=== PATIENT | male | born 1935 | race Caucasian/White ===

== ENCOUNTER → 2017-03-30 | Outpatient (CLI) | payer MEDICARE ==
[~2017-03-30] MED LIST: ASPI-555 PO; ATOR10TA PO; CARB1TAB20 PO; ESCI20TA PO; PANT40TA25 PO; TRAM50TA4 PO
== END | disposition home or self-care (01) ==
LOC: OIH 10:27
PROVIDERS: ATTEND Internal Medicine
DX: G20 Parkinson's disease (principal); G91.2 (Idiopathic) normal pressure hydrocephalus; G31.9 Degenerative disease of nervous system, unspecified
CPT/HCPCS: 70450

== ENCOUNTER 2017-07-13 13:50 | Inpatient (IN) | payer MEDICARE ==
[~2017-07-13 13:50] MED LIST changes: -ASPI-555 PO; -PANT40TA25 PO
[2017-07-13 14:39] LABS: BASOPHILS % (AUTO) 0.6 % (0.0-5.0); EOSINOPHILS % (AUTO) 2.4 % (0.0-8.0); HEMATOCRIT 33.1 % (42-54); LYMPHOCYTES % (AUTO) 13.3 % (21.0-51.0); MEAN CORPUSCULAR HEMOGLOBIN 26.2 pg (27.0-33.0); MEAN CORPUSCULAR HGB CONC 33.3 g/dL (32.0-36.0); MEAN CORPUSCULAR VOLUME 78.8 fL (79-99); MONOCYTES % (AUTO) 10.4 % (3.0-13.0); NEUTROPHILS % (AUTO) 73.3 % (40.0-77.0); PLATELET COUNT (AUTO) 261 K/uL (130-400); RED BLOOD CELL COUNT(AUTO) 4.21 MIL/uL (4.50-6.20); RED CELL DISTRIBUTION WIDTH 17.3 % (11.0-15.5); WHITE BLOOD COUNT (AUTO) 9.3 K/uL (4.8-10.8)
[2017-07-13 14:58] LABS: POTASSIUM 4.2 mmol/L (3.5-5.1)
[2017-07-13 15:03] LABS: BILIRUBIN,TOTAL 0.2 mg/dL (0.2-1.0)
[2017-07-13 15:06] LABS: CREATINE KINASE MB 0.9 ng/mL (0.5-3.6)
[2017-07-13] MEDS ORDERED: SODIUM CHLORIDE 0.9% 1000ML 1,000 ML IV ONE (15:17)
[2017-07-13] MEDS ORDERED: ONDANSETRON HCL MDV 20ML 2 MG/ML VIAL ONE (15:17)
[2017-07-13] MEDS ORDERED: METRONIDAZOLE 500MG/100ML BAG 100 ML ONE (15:18)
[2017-07-13] MEDS ORDERED: MORPHINE SULFATE 4 MG/1ML SYG ONE (15:18)
[2017-07-13] MEDS ORDERED: LEVOFLOXACIN 500 MG/D5W 100 ML 0 ML ONE (16:10)
[2017-07-13] MEDS ORDERED: CEFTRIAXONE SODIUM 1 GM ONE (18:05)
[2017-07-13] MEDS ORDERED: ENOXAPARIN SODIUM 80 MG/0.8 ML SQ SCH (19:00)
[2017-07-13 21:48] LABS: APPEARANCE,URINE Clear (CLEAR); BILIRUBIN,URINE Small (NEGATIVE); COLOR,URINE Dark Yellow (YELLOW); GLUCOSE, URINE (UA) Negative (NEGATIVE); KETONES,URINE Negative (NEGATIVE); LEUKOCYTE ESTERASE ,URINE Small (NEGATIVE); NITRATE,URINE Positive (NEGATIVE); OCCULT BLOOD,URINE Negative (NEGATIVE); PH,URINE 6.5 (5.0-8.0); PROTEIN,URINE Trace (NEGATIVE)
[2017-07-13 21:56] LABS: BACTERIA,URINE Few /HPF (None Seen); RBC,URINE 0-1 /HPF (0-1); SQUAMOUS EPITHELIAL CELL,UR Rare /HPF (0-2)
[2017-07-13 23:20] VITALS: BP 102/44
[2017-07-13 23:40] VITALS: BP 137/85
[2017-07-13] MEDS: METRONIDAZOLE 500MG/100ML BAG 100 ML IVPB SCH (23:58)
[2017-07-14] MEDS ORDERED: ASPI-555 PO (00:32)
[2017-07-14] MEDS ORDERED: PANT40TA25 PO (00:32)
[2017-07-14 04:10] VITALS: BP 108/56
[2017-07-14 05:18] LABS: HEMATOCRIT 30.8 % (42-54); MEAN CORPUSCULAR HEMOGLOBIN 25.8 pg (27.0-33.0); MEAN CORPUSCULAR HGB CONC 32.7 g/dL (32.0-36.0); MEAN CORPUSCULAR VOLUME 78.7 fL (79-99); PLATELET COUNT (AUTO) 237 K/uL (130-400); RED BLOOD CELL COUNT(AUTO) 3.91 MIL/uL (4.50-6.20); RED CELL DISTRIBUTION WIDTH 16.8 % (11.0-15.5)
[2017-07-14 05:34] LABS: POTASSIUM 4.1 mmol/L (3.5-5.1)
[2017-07-14] MEDS: METRONIDAZOLE 500MG/100ML BAG 100 ML IVPB SCH (06:56)
[2017-07-14 08:07] VITALS: BP 118/64
[2017-07-14] MEDS ORDERED: MORPHINE SULFATE 5 MG/ML VIAL IV PRN (08:15)
[2017-07-14] MEDS ORDERED: PNEUMOCOCCAL VACCINE POLYVALENT 0.5 ML/VIAL [PPV] IM SCH (08:15)
[2017-07-14] MEDS ORDERED: MORPHINE SULFATE 4 MG/1ML SYG IVP PRN (08:15)
[2017-07-14] MEDS: SODIUM CHLORIDE 0.9% 1000ML 1,000 ML IV SCH ×2 (11:02→21:35)
[2017-07-14] MEDS: PANTOPRAZOLE SODIUM 40 MG TABLET.DR PO SCH (11:03)
[2017-07-14] MEDS: ENOXAPARIN SODIUM 80 MG/0.8 ML SQ SCH (11:03)
[2017-07-14 12:00] VITALS: BP 100/59
[2017-07-14] MEDS ORDERED: CEFTRIAXONE 1GM/D5W 50ML 50 ML IV SCH (15:00)
[2017-07-14 16:42] VITALS: BP 123/62
[2017-07-14] MEDS: CEFTRIAXONE SODIUM 1 GM IVP SCH (16:47)
[2017-07-14] MEDS: LEVOFLOXACIN 500 MG/D5W 100 ML 100 ML IV SCH (16:48)
[2017-07-14] MEDS ORDERED: CEFTRIAXONE SODIUM 1 GM IVP SCH (18:00)
[2017-07-14] MEDS ORDERED: METRONIDAZOLE 500MG/100ML BAG 100 ML IVPB SCH (18:00)
[2017-07-14 19:45] VITALS: BP 127/70
[2017-07-15] VITALS (7 sets, daily range): BP systolic 110–154; BP diastolic 59–85
[2017-07-15 05:03] LABS: HEMATOCRIT 30.3 % (42-54); MEAN CORPUSCULAR HEMOGLOBIN 27.1 pg (27.0-33.0); MEAN CORPUSCULAR HGB CONC 34.7 g/dL (32.0-36.0); MEAN CORPUSCULAR VOLUME 78.2 fL (79-99); PLATELET COUNT (AUTO) 237 K/uL (130-400); RED BLOOD CELL COUNT(AUTO) 3.87 MIL/uL (4.50-6.20); RED CELL DISTRIBUTION WIDTH 16.8 % (11.0-15.5); WHITE BLOOD COUNT (AUTO) 5.4 K/uL (4.8-10.8)
[2017-07-15 05:11] LABS: CREATININE 0.9 mg/dL (0.5-1.5); POTASSIUM 3.8 mmol/L (3.5-5.1)
[2017-07-15] MEDS: PANTOPRAZOLE SODIUM 40 MG TABLET.DR PO SCH (09:00)
[2017-07-15] MEDS: ENOXAPARIN SODIUM 80 MG/0.8 ML SQ SCH (11:01)
[2017-07-15] MEDS: SODIUM CHLORIDE 0.9% 1000ML 1,000 ML IV SCH ×2 (11:02→19:51)
[2017-07-15] MEDS: CEFTRIAXONE SODIUM 1 GM IVP SCH (14:33)
[2017-07-15] MEDS: LEVOFLOXACIN 500 MG/D5W 100 ML 100 ML IV SCH (14:40)
[2017-07-16] MEDS: SODIUM CHLORIDE 0.9% 1000ML 1,000 ML IV SCH ×3 (01:00→15:15)
[2017-07-16 04:00] VITALS: BP 140/72
[2017-07-16 05:07] LABS: HEMATOCRIT 33.6 % (42-54); MEAN CORPUSCULAR HGB CONC 33.1 g/dL (32.0-36.0); MEAN CORPUSCULAR VOLUME 78.4 fL (79-99); PLATELET COUNT (AUTO) 239 K/uL (130-400); RED BLOOD CELL COUNT(AUTO) 4.29 MIL/uL (4.50-6.20); RED CELL DISTRIBUTION WIDTH 16.8 % (11.0-15.5); WHITE BLOOD COUNT (AUTO) 8.6 K/uL (4.8-10.8)
[2017-07-16 05:18] LABS: CREATININE 0.8 mg/dL (0.5-1.5); POTASSIUM 3.8 mmol/L (3.5-5.1)
[2017-07-16 07:57] VITALS: BP 132/71
[2017-07-16] MEDS: CARBIDOPA-LEVODOPA 25-100 TAB PO SCH ×3 (09:17→21:07)
[2017-07-16] MEDS: PANTOPRAZOLE SODIUM 40 MG TABLET.DR PO SCH (09:17)
[2017-07-16] MEDS: ENOXAPARIN SODIUM 80 MG/0.8 ML SQ SCH (09:18)
[2017-07-16 11:00] VITALS: BP 123/64
[2017-07-16] MEDS: METRONIDAZOLE 500MG/100ML BAG 100 ML IV SCH ×3 (15:14→23:52)
[2017-07-16 16:00] VITALS: BP 159/70
[2017-07-16] MEDS: LEVOFLOXACIN 500 MG/D5W 100 ML 100 ML IV SCH (17:17)
[2017-07-16 19:54] VITALS: BP 137/65
[2017-07-16] MEDS: ATORVASTATIN CALCIUM 10 MG TABLET PO SCH (21:07)
[2017-07-16 23:56] VITALS: BP 130/68
[2017-07-17 04:00] VITALS: BP 126/65
[2017-07-17] MEDS: SODIUM CHLORIDE 0.9% 1000ML 1,000 ML IV SCH ×3 (04:52→23:10)
[2017-07-17] MEDS: METRONIDAZOLE 500MG/100ML BAG 100 ML IV SCH ×4 (04:52→23:10)
[2017-07-17 07:44] VITALS: BP 115/61
[2017-07-17 08:58] LABS: HEMATOCRIT 31.2 % (42-54); MEAN CORPUSCULAR HEMOGLOBIN 26.4 pg (27.0-33.0); MEAN CORPUSCULAR HGB CONC 34.1 g/dL (32.0-36.0); MEAN CORPUSCULAR VOLUME 77.5 fL (79-99); PLATELET COUNT (AUTO) 232 K/uL (130-400); RED BLOOD CELL COUNT(AUTO) 4.02 MIL/uL (4.50-6.20); RED CELL DISTRIBUTION WIDTH 16.5 % (11.0-15.5); WHITE BLOOD COUNT (AUTO) 10.7 K/uL (4.8-10.8)
[2017-07-17 09:08] LABS: CREATININE 0.8 mg/dL (0.5-1.5); POTASSIUM 3.5 mmol/L (3.5-5.1)
[2017-07-17] MEDS: PANTOPRAZOLE SODIUM 40 MG TABLET.DR PO SCH (09:41)
[2017-07-17] MEDS: CARBIDOPA-LEVODOPA 25-100 TAB PO SCH ×3 (09:41→19:44)
[2017-07-17] MEDS: LACTULOSE 20 GM/30 ML UDCUP PO SCH ×3 (09:41→19:41)
[2017-07-17] MEDS: ENOXAPARIN SODIUM 80 MG/0.8 ML SQ SCH (09:42)
[2017-07-17 11:26] VITALS: BP 95/47
[2017-07-17 14:15] LABS: INR 1.11 (0.85-1.15); PROTHROMBIN TIME 11.6 SEC (9.6-11.6)
[2017-07-17] MEDS: LEVOFLOXACIN 500 MG/D5W 100 ML 100 ML IV SCH (15:56)
[2017-07-17 16:00] VITALS: BP 111/64
[2017-07-17] MEDS: ATORVASTATIN CALCIUM 10 MG TABLET PO SCH (19:41)
[2017-07-17 20:14] VITALS: BP 126/126
[2017-07-18] VITALS (7 sets, daily range): BP systolic 113–152; BP diastolic 50–75
[2017-07-18] MEDS: METRONIDAZOLE 500MG/100ML BAG 100 ML IV SCH ×4 (05:56→23:17)
[2017-07-18] MEDS: PANTOPRAZOLE SODIUM 40 MG TABLET.DR PO SCH (09:33)
[2017-07-18] MEDS: CEFTRIAXONE SODIUM 1 GM IV SCH (09:33)
[2017-07-18] MEDS: CARBIDOPA-LEVODOPA 25-100 TAB PO SCH ×3 (09:33→20:39)
[2017-07-18] MEDS: ENOXAPARIN SODIUM 80 MG/0.8 ML SQ SCH (09:34)
[2017-07-18] MEDS: LACTULOSE 20 GM/30 ML UDCUP PO SCH ×3 (09:34→20:38)
[2017-07-18] MEDS: SODIUM CHLORIDE 0.9% 1000ML 1,000 ML IV SCH ×3 (11:40→23:18)
[2017-07-18] MEDS: ATORVASTATIN CALCIUM 10 MG TABLET PO SCH (20:39)
[2017-07-19 00:48] VITALS: BP 128/68
[2017-07-19 04:52] VITALS: BP 126/55
[2017-07-19] MEDS: METRONIDAZOLE 500MG/100ML BAG 100 ML IV SCH ×4 (05:23→22:50)
[2017-07-19 07:46] VITALS: BP 124/58
[2017-07-19] MEDS: PANTOPRAZOLE SODIUM 40 MG TABLET.DR PO SCH (08:29)
[2017-07-19] MEDS: CARBIDOPA-LEVODOPA 25-100 TAB PO SCH ×3 (08:29→19:36)
[2017-07-19] MEDS: LACTULOSE 20 GM/30 ML UDCUP PO SCH (08:29)
[2017-07-19] MEDS: ENOXAPARIN SODIUM 80 MG/0.8 ML SQ SCH (08:29)
[2017-07-19] MEDS: CEFTRIAXONE SODIUM 1 GM IV SCH (08:30)
[2017-07-19 11:35] VITALS: BP 137/60
[2017-07-19 16:54] VITALS: BP 130/62
[2017-07-19 19:00] VITALS: BP 139/65
[2017-07-19] MEDS: ATORVASTATIN CALCIUM 10 MG TABLET PO SCH (19:36)
[2017-07-19] MEDS: SODIUM CHLORIDE 0.9% 1000ML 1,000 ML IV SCH (20:58)
[2017-07-20] MEDS: SODIUM CHLORIDE 0.9% 1000ML 1,000 ML IV SCH ×3 (00:02→17:00)
[2017-07-20 00:26] VITALS: BP 133/59
[2017-07-20 03:15] VITALS: BP 118/42
[2017-07-20] MEDS: METRONIDAZOLE 500MG/100ML BAG 100 ML IV SCH ×3 (04:23→18:19)
[2017-07-20 07:47] VITALS: BP 134/59
[2017-07-20] MEDS: CEFTRIAXONE SODIUM 1 GM IV SCH (08:40)
[2017-07-20] MEDS: PANTOPRAZOLE SODIUM 40 MG TABLET.DR PO SCH (08:41)
[2017-07-20] MEDS: CARBIDOPA-LEVODOPA 25-100 TAB PO SCH ×2 (08:41→14:28)
[2017-07-20] MEDS: ENOXAPARIN SODIUM 80 MG/0.8 ML SQ SCH (08:41)
[2017-07-20 10:59] VITALS: BP 122/73
[2017-07-20 16:00] VITALS: BP 154/100
== END 2017-07-20 19:59 | DRG 178 ==
LOC: EDH 13:50 → EDHIP 17:50 → OBSVTOIN 17:50 → 4CH 23:03 → 4BH 07-17 07:59
PROVIDERS: ADMIT Internal Medicine; ATTEND Internal Medicine
PROC: 3E0234Z Introduction of Serum, Toxoid and Vaccine into Muscle, Percutaneous Approach (ICD-10-PCS; 2017-07-13)
PROC: 02HV33Z Insertion of Infusion Device into Superior Vena Cava, Percutaneous Approach (ICD-10-PCS; principal; 2017-07-19)
DX: J15.6 Pneumonia due to other Gram-negative bacteria (principal); K57.32 Diverticulitis of large intestine without perforation or abscess without bleeding; G20 Parkinson's disease; E78.5 Hyperlipidemia, unspecified; I10 Essential (primary) hypertension; I25.10 Atherosclerotic heart disease of native coronary artery without angina pectoris; Z88.0 Allergy status to penicillin; Z23 Encounter for immunization
CPT/HCPCS: 36415; 71045; 74176; 80048; 80053; 81001; 82150; 82550; 82553; 82948; 83690; 84484; 85025; 85027; 85610; 85730; 87088; 90732; 93005; 97039; A4218; J0696; J1650; J1956; J2270; J3490; J7030

== ENCOUNTER → 2017-12-07 | Outpatient (CLI) | payer MEDICARE ==
[~2017-12-07] MED LIST changes: +ASPI-555 PO; -ESCI20TA PO; +PANT40TA25 PO; -TRAM50TA4 PO
== END | disposition home or self-care (01) ==
LOC: OIH 13:18
PROVIDERS: ATTEND Internal Medicine
DX: M48.061 Spinal stenosis, lumbar region without neurogenic claudication (principal); M47.816 Spondylosis without myelopathy or radiculopathy, lumbar region; I70.0 Atherosclerosis of aorta; M62.562 Muscle wasting and atrophy, not elsewhere classified, left lower leg; M85.80 Other specified disorders of bone density and structure, unspecified site
CPT/HCPCS: 72100

== ENCOUNTER 2017-12-18 16:59 | Observation (INO) | payer MEDICARE ==
[~2017-12-18] VITALS: Ht 177.8 cm; Wt 89.1 kg
[2017-12-18] MEDS ORDERED: 1/2 NORMAL SALINE 1,000 ML IV ONE (17:42)
[2017-12-18 17:43] LABS: BASOPHILS % (AUTO) 0.3 % (0.0-5.0); EOSINOPHILS % (AUTO) 0.3 % (0.0-8.0); HEMATOCRIT 36.8 % (42-54); LYMPHOCYTES % (AUTO) 10.7 % (21.0-51.0); MEAN CORPUSCULAR HEMOGLOBIN 26.6 pg (27.0-33.0); MEAN CORPUSCULAR HGB CONC 32.1 g/dL (32.0-36.0); MEAN CORPUSCULAR VOLUME 82.8 fL (79-99); MONOCYTES % (AUTO) 9.8 % (3.0-13.0); NEUTROPHILS % (AUTO) 78.9 % (40.0-77.0); PLATELET COUNT (AUTO) 152 K/uL (130-400); RED BLOOD CELL COUNT(AUTO) 4.44 MIL/uL (4.50-6.20); RED CELL DISTRIBUTION WIDTH 16.4 % (11.0-15.5); WHITE BLOOD COUNT (AUTO) 10.1 K/uL (4.8-10.8)
[2017-12-18] MEDS ORDERED: MORPHINE SULFATE 2 MG/ML 1ML SYG IVP PRN (18:00)
[2017-12-18] MEDS ORDERED: VANCOMYCIN PROTOCOL PER PHARMACY IV SCH (18:00)
[2017-12-18] MEDS ORDERED: ONDANSETRON HCL 4 MG/2 ML VIAL IVP PRN (18:00)
[2017-12-18] MEDS ORDERED: VANCOMYCIN 1.75 GM in SODIUM CHLORIDE 0.9% 250 ML IV ONE (18:00)
[2017-12-18 18:04] LABS: CREATININE 0.8 mg/dL (0.5-1.5); POTASSIUM 3.9 mmol/L (3.5-5.1)
[2017-12-18] MEDS ORDERED: LEVOFLOXACIN 750 MG/D5W 150 ML 150 ML ONE (18:04)
[2017-12-18 18:09] LABS: ALBUMIN 3.5 g/dL (3.5-5.0); BILIRUBIN,TOTAL 0.6 mg/dL (0.2-1.0); TOTAL PROTEIN, SERUM 7.4 g/dL (6.0-8.3)
[2017-12-18 20:35] VITALS: BP 124/65
[2017-12-18] MEDS: VANCOMYCIN 1GM+NS 250ML 250 ML IV SCH (21:00)
[2017-12-18] MEDS: LEVOFLOXACIN 750 MG/D5W 150 ML 150 ML IV SCH (23:00)
[2017-12-18] MEDS: 1/2 NORMAL SALINE 1,000 ML IV SCH (23:11)
[2017-12-18] MEDS: METRONIDAZOLE 250MG/50ML 50 ML IV SCH (23:26)
[2017-12-19] VITALS: BP 114/60
[2017-12-19] MEDS ORDERED: ZOLP10TA2 PO (00:46)
[2017-12-19] MEDS ORDERED: DICL75TA5 PO (00:46)
[2017-12-19] MEDS ORDERED: TRAM50TA4 PO (00:46)
[2017-12-19 04:00] VITALS: BP 104/36
[2017-12-19] MEDS: METRONIDAZOLE 250MG/50ML 50 ML IV SCH ×4 (04:03→22:34)
[2017-12-19 04:59] LABS: MEAN CORPUSCULAR HEMOGLOBIN 27.7 pg (27.0-33.0); MEAN CORPUSCULAR HGB CONC 33.5 g/dL (32.0-36.0); MEAN CORPUSCULAR VOLUME 82.9 fL (79-99); PLATELET COUNT (AUTO) 163 K/uL (130-400); RED BLOOD CELL COUNT(AUTO) 3.87 MIL/uL (4.50-6.20); RED CELL DISTRIBUTION WIDTH 16.3 % (11.0-15.5); WHITE BLOOD COUNT (AUTO) 7.9 K/uL (4.8-10.8)
[2017-12-19 05:18] LABS: CREATININE 0.9 mg/dL (0.5-1.5); POTASSIUM 3.5 mmol/L (3.5-5.1)
[2017-12-19] MEDS: 1/2 NORMAL SALINE 1,000 ML IV SCH ×2 (06:14→19:00)
[2017-12-19 08:03] VITALS: BP 111/36
[2017-12-19] MEDS ORDERED: ONDANSETRON HCL 4 MG/2 ML VIAL IVP PRN (08:45)
[2017-12-19] MEDS ORDERED: PHARMACY COMMUNICATION MISC SCH (09:30)
[2017-12-19] MEDS: VANCOMYCIN 1GM+NS 250ML 250 ML IV SCH ×2 (09:40→20:18)
[2017-12-19] MEDS ORDERED: COMPOUND IV MISC 1 EACH IVSOLN MISC PRN (10:45)
[2017-12-19 11:00] VITALS: BP 110/64
[2017-12-19 16:00] VITALS: BP 134/69
[2017-12-19 20:00] VITALS: BP 138/67
[2017-12-20] VITALS: BP 145/65
[2017-12-20] MEDS: 1/2 NORMAL SALINE 1,000 ML IV SCH ×3 (02:49→19:56)
[2017-12-20] MEDS: METRONIDAZOLE 250MG/50ML 50 ML IV SCH ×4 (03:45→23:17)
[2017-12-20 04:00] VITALS: BP 136/64
[2017-12-20 07:00] VITALS: BP 136/71
[2017-12-20] MEDS ORDERED: POTASSIUM CHLORIDE 10% ELIXIR 20 MEQ/15 ML UDCUP PO PRN (10:15)
[2017-12-20] MEDS ORDERED: POTASSIUM CHLORIDE 20MEQ/100ML 100 ML IV PRN (10:15)
[2017-12-20] MEDS ORDERED: LIDOCAINE HCL-MPF 1% 2ML VIAL IVP PRN (10:15)
[2017-12-20] MEDS: VANCOMYCIN 1GM+NS 250ML 250 ML IV SCH ×2 (10:54→20:53)
[2017-12-20 11:00] VITALS: BP 119/68
[2017-12-20] MEDS: POTASSIUM CHLORIDE 20 MEQ ERTAB PO PRN ×2 (11:55→15:15)
[2017-12-20 16:00] VITALS: BP 131/64
[2017-12-20 20:00] VITALS: BP 123/61
[2017-12-21] VITALS: BP 137/75
[2017-12-21] MEDS: LEVOFLOXACIN 750 MG/D5W 150 ML 150 ML IV SCH (00:37)
[2017-12-21 04:00] VITALS: BP 159/79
[2017-12-21] MEDS: METRONIDAZOLE 250MG/50ML 50 ML IV SCH (04:08)
[2017-12-21] MEDS: 1/2 NORMAL SALINE 1,000 ML IV SCH ×2 (05:13→08:30)
[2017-12-21 05:56] LABS: HEMATOCRIT 32.2 % (42-54); MEAN CORPUSCULAR HEMOGLOBIN 27.8 pg (27.0-33.0); MEAN CORPUSCULAR HGB CONC 33.7 g/dL (32.0-36.0); MEAN CORPUSCULAR VOLUME 82.5 fL (79-99); PLATELET COUNT (AUTO) 147 K/uL (130-400); RED CELL DISTRIBUTION WIDTH 15.9 % (11.0-15.5); WHITE BLOOD COUNT (AUTO) 6.5 K/uL (4.8-10.8)
[2017-12-21 06:12] LABS: ALBUMIN 2.8 g/dL (3.5-5.0); BILIRUBIN,TOTAL 0.4 mg/dL (0.2-1.0); CREATININE 0.9 mg/dL (0.5-1.5); POTASSIUM 3.7 mmol/L (3.5-5.1); TOTAL PROTEIN, SERUM 6.7 g/dL (6.0-8.3)
[2017-12-21 08:26] VITALS: BP 135/74
[2017-12-21] MEDS: VANCOMYCIN 1GM+NS 250ML 250 ML IV SCH (08:27)
== END 2017-12-21 10:45 | disposition home or self-care (01) ==
LOC: EDH 16:59 → EDHIP 17:00 → 3CH 20:46
PROVIDERS: ADMIT Internal Medicine; ATTEND Internal Medicine
DX: K57.92 Diverticulitis of intestine, part unspecified, without perforation or abscess without bleeding (principal); I25.10 Atherosclerotic heart disease of native coronary artery without angina pectoris; I10 Essential (primary) hypertension; G20 Parkinson's disease
CPT/HCPCS: 36415 ×4; 74176; 80048; 80053 ×2; 80202; 83605; 83690; 85025; 85027 ×2; 85651; 87040 ×2; 96365; 96366 ×3; 96367; 96368; 96375; 99285; G0378 ×66; J1956 ×2; J3370 ×6; J3490 ×4; J7030

== ENCOUNTER → 2018-05-19 | Outpatient (CLI) | payer MEDICARE ==
[~2018-05-19] MED LIST changes: -ASPI-555 PO; +DICL75TA5 PO; +IOHEXOL-350 75 ML VIAL IV ONE; +TRAM50TA4 PO; +ZOLP10TA2 PO
== END | disposition home or self-care (01) ==
LOC: RAH 08:54
PROVIDERS: ATTEND Internal Medicine
DX: K57.92 Diverticulitis of intestine, part unspecified, without perforation or abscess without bleeding (principal); K44.9 Diaphragmatic hernia without obstruction or gangrene; K40.90 Unilateral inguinal hernia, without obstruction or gangrene, not specified as recurrent; N28.1 Cyst of kidney, acquired; K59.00 Constipation, unspecified
CPT/HCPCS: 74178; Q9967

== ENCOUNTER → 2018-08-24 | Outpatient (CLI) | payer MEDICARE ==
[~2018-08-24] MED LIST changes: -IOHEXOL-350 75 ML VIAL IV ONE
== END | disposition home or self-care (01) ==
LOC: RAH 10:41
PROVIDERS: ATTEND Internal Medicine
DX: R59.0 Localized enlarged lymph nodes (principal); M47.812 Spondylosis without myelopathy or radiculopathy, cervical region
CPT/HCPCS: 70490

== ENCOUNTER 2018-09-22 12:46 | Emergency (ER) | payer OTHER ==
[~2018-09-22 12:46] MED LIST changes: +ASPI-1197 PO; +ROPI1TAB11 PO; +SODIUM CHLORIDE 0.9% 500ML 500 ML IV ONE; +VIT1CAPS5 PO
[2018-09-22 13:53] LABS: BASOPHILS % (AUTO) 0.4 % (0.0-5.0); EOSINOPHILS % (AUTO) 0.6 % (0.0-8.0); HEMATOCRIT 41.2 % (42-54); LYMPHOCYTES % (AUTO) 14.2 % (21.0-51.0); MEAN CORPUSCULAR HEMOGLOBIN 30.5 pg (27.0-33.0); MEAN CORPUSCULAR HGB CONC 33.7 g/dL (32.0-36.0); MEAN CORPUSCULAR VOLUME 90.4 fL (79-99); MONOCYTES % (AUTO) 8.5 % (3.0-13.0); NEUTROPHILS % (AUTO) 76.3 % (40.0-77.0); PLATELET COUNT (AUTO) 154 K/uL (130-400); RED BLOOD CELL COUNT(AUTO) 4.55 MIL/uL (4.50-6.20); RED CELL DISTRIBUTION WIDTH 15.3 % (11.0-15.5); WHITE BLOOD COUNT (AUTO) 8.5 K/uL (4.8-10.8)
[2018-09-22 13:56] LABS: CREATININE 1.2 mg/dL (0.5-1.5); POTASSIUM 3.9 mmol/L (3.5-5.1)
[2018-09-22 14:01] LABS: ALBUMIN 3.7 g/dL (3.5-5.0); BILIRUBIN,TOTAL 0.5 mg/dL (0.2-1.0); TOTAL PROTEIN, SERUM 7.5 g/dL (6.0-8.3)
== END 2018-09-22 17:02 | disposition home or self-care (01) ==
LOC: EDH 12:46
DX: R55 Syncope and collapse (principal); R51 Headache; E78.5 Hyperlipidemia, unspecified; Z88.0 Allergy status to penicillin; Z87.891 Personal history of nicotine dependence
CPT/HCPCS: 36415; 80053; 84484; 85025; 93005; 96360; 99285; J7040

== ENCOUNTER 2018-09-23 08:58 | Observation (INO) | payer OTHER ==
[~2018-09-23] VITALS: Ht 175.3 cm; Wt 89.9 kg
[~2018-09-23 08:58] MED LIST changes: -SODIUM CHLORIDE 0.9% 500ML 500 ML IV ONE
[2018-09-23 09:16] LABS: BASOPHILS % (AUTO) 0.4 % (0.0-5.0); EOSINOPHILS % (AUTO) 0.6 % (0.0-8.0); HEMATOCRIT 38.1 % (42-54); LYMPHOCYTES % (AUTO) 16.1 % (21.0-51.0); MEAN CORPUSCULAR HEMOGLOBIN 30.1 pg (27.0-33.0); MEAN CORPUSCULAR HGB CONC 33.7 g/dL (32.0-36.0); MEAN CORPUSCULAR VOLUME 89.5 fL (79-99); MONOCYTES % (AUTO) 8.5 % (3.0-13.0); NEUTROPHILS % (AUTO) 74.4 % (40.0-77.0); PLATELET COUNT (AUTO) 159 K/uL (130-400); RED BLOOD CELL COUNT(AUTO) 4.26 MIL/uL (4.50-6.20); RED CELL DISTRIBUTION WIDTH 14.8 % (11.0-15.5); WHITE BLOOD COUNT (AUTO) 7.8 K/uL (4.8-10.8)
[2018-09-23] MEDS ORDERED: SODIUM CHLORIDE 0.9% 500ML 500 ML IV ONE (09:22)
[2018-09-23 09:24] LABS: CREATININE 1.1 mg/dL (0.5-1.5); POTASSIUM 3.6 mmol/L (3.5-5.1)
[2018-09-23 09:28] LABS: INR 1.01 (0.85-1.15); PARTIAL THROMBOPLASTIN TIME 23.1 SEC (26.3-35.5); PROTHROMBIN TIME 10.6 SEC (9.6-11.6)
[2018-09-23 09:29] LABS: ALBUMIN 3.2 g/dL (3.5-5.0); BILIRUBIN,TOTAL 0.6 mg/dL (0.2-1.0); TOTAL PROTEIN, SERUM 6.5 g/dL (6.0-8.3)
[2018-09-23] MEDS ORDERED: CALCIUM GLUCONATE 1 GM/10 ML VIAL IV ONE (10:10)
[2018-09-23] MEDS ORDERED: SODIUM CHLORIDE 0.9% 100 ML IV ONE (10:11)
[2018-09-23 19:30] VITALS: BP 141/67
[2018-09-23 23:49] VITALS: BP 183/76
[2018-09-24 04:00] VITALS: BP 174/77
[2018-09-24 05:51] LABS: HEMATOCRIT 40.5 % (42-54); MEAN CORPUSCULAR HEMOGLOBIN 30.2 pg (27.0-33.0); MEAN CORPUSCULAR HGB CONC 33.4 g/dL (32.0-36.0); MEAN CORPUSCULAR VOLUME 90.6 fL (79-99); PLATELET COUNT (AUTO) 160 K/uL (130-400); RED BLOOD CELL COUNT(AUTO) 4.47 MIL/uL (4.50-6.20); RED CELL DISTRIBUTION WIDTH 14.9 % (11.0-15.5); WHITE BLOOD COUNT (AUTO) 8.7 K/uL (4.8-10.8)
[2018-09-24 06:12] LABS: ALBUMIN 3.3 g/dL (3.5-5.0); BILIRUBIN,TOTAL 0.4 mg/dL (0.2-1.0); CREATININE 0.8 mg/dL (0.5-1.5); POTASSIUM 3.4 mmol/L (3.5-5.1)
[2018-09-24] MEDS ORDERED: POTASSIUM CHLORIDE 20 MEQ ERTAB PO ONE (06:47)
[2018-09-24] MEDS ORDERED: POTASSIUM CHLORIDE 10% ELIXIR 20 MEQ/15 ML UDCUP PO PRN (07:00)
[2018-09-24] MEDS ORDERED: POTASSIUM CHLORIDE 20 MEQ ERTAB PO PRN (07:00)
[2018-09-24] MEDS ORDERED: LIDOCAINE HCL-MPF 1% 2ML VIAL IVP PRN (07:00)
[2018-09-24] MEDS ORDERED: POTASSIUM CHLORIDE 20MEQ/100ML 100 ML IV PRN (07:00)
[2018-09-24 08:00] VITALS: BP 148/84
[2018-09-24] MEDS ORDERED: TRAMADOL HCL 50 MG TABLET PO PRN (10:15)
[2018-09-24 11:00] VITALS: BP 142/82
--- NOTE | 2018-09-24 12:30 | NUR ---
DISCHARGE DISCHARGE TEACHING DONE WITH PATIENT USING TEACHBACK METHOD, VERBALIZED UNDERSTANDING. NO NOTED SOB OR DISTRESS. NO NEW PRESCRIPTIONS. PT AWARE OF NEED TO ATTEND DR. MURRAY APPOINTMENT FOR FOLLOW UP OUTPATIENT 2DECHO. IV REMOVED, CATH TIP INTACT. PENDING TO BE TRANSFERRED OUT VIA PRIVATE VEHICLE.
--- NOTE | 2018-09-24 18:12 | NUR ---
CM NOTE PT OBS STATUS, WITH FAMILY TO BE DCD TODAY, NO TRIGGERS TO CM, NO CONCERNS VOICED TO PILAR DETAILED CM ASSESMSENT DEFERRED Addendum: 09/24/18 at 1814 by JABARI HUSTON RN CM Amended: Links added.
== END 2018-09-24 13:30 | disposition home or self-care (01) ==
LOC: EDH 08:58 → EDHIP 11:58 → 4BH 18:48
PROVIDERS: ADMIT Internal Medicine; ATTEND Internal Medicine
DX: R55 Syncope and collapse (principal); E78.5 Hyperlipidemia, unspecified; I44.0 Atrioventricular block, first degree; I44.7 Left bundle-branch block, unspecified; G20 Parkinson's disease; I25.10 Atherosclerotic heart disease of native coronary artery without angina pectoris; I10 Essential (primary) hypertension; I48.0 Paroxysmal atrial fibrillation; I35.0 Nonrheumatic aortic (valve) stenosis; Z95.3 Presence of xenogenic heart valve; Z79.899 Other long term (current) drug therapy
CPT/HCPCS: 36415 ×2; 70450; 71045; 80053 ×2; 84484; 85025; 85027; 85610; 85730; 93005; G0378 ×26; J0610; J7040; 99291